=== PATIENT | female | born 1985 | race African-American/Black ===

== ENCOUNTER 2018-03-05 15:48 | Emergency (ER) | payer MEDICAID, OTHER ==
[2018-03-05 16:34] LABS: URINE PH (Dip) POC 5.5 (5.0-8.5)
[2018-03-05 16:34] LABS: URINE BLOOD (Dip) POC 2+ (NEGATIVE); URINE GLUCOSE (Dip) POC Negative (NEGATIVE); URINE KETONES (Dip) POC 1+ (NEGATIVE); URINE LEUKOCYTE EST (Dip) POC 1+ (NEGATIVE); URINE NITRITE (Dip) POC Negative (NEGATIVE); URINE TOTAL PROTEIN POC 1+ (NEGATIVE)
== END 2018-03-05 17:32 | disposition home or self-care (01) ==
LOC: FTE 15:48
DX: O26.892 Other specified pregnancy related conditions, second trimester (principal); R10.2 Pelvic and perineal pain; O23.42 Unspecified infection of urinary tract in pregnancy, second trimester; Z3A.18 18 weeks gestation of pregnancy
CPT/HCPCS: 76805; 81003; 99284-25

== ENCOUNTER 2018-08-03 04:11 | Inpatient (IN) | payer MEDICAID ==
[2018-08-03] MEDS ORDERED: LACTATED RINGER'S 1,000 ML IV (05:16)
[2018-08-03] MEDS ORDERED: IBUPROFEN 600 MG TAB PO (05:30)
[2018-08-03] MEDS ORDERED: LIDOCAINE 1% (MPF) 30 ML INJ INJ (05:30)
[2018-08-03] MEDS ORDERED: CARBOPROST 250 MCG INJ IM ×2 (05:30→21:30)
[2018-08-03] MEDS ORDERED: METHYLERGONOVINE 0.2 MG INJ IM (05:30)
[2018-08-03] MEDS ORDERED: OXYTOCIN 30 UNITS/LR 500 ML IV ×3 (05:30→21:30)
[2018-08-03] MEDS ORDERED: MISOPROSTOL 200 MCG TAB PR ×2 (05:30→21:30)
[2018-08-03] MEDS ORDERED: BUTORPHANOL 2 MG INJ IV (05:30)
[2018-08-03 06:19] LABS: ADD MAN DIFF? NO
[2018-08-03 06:22] LABS: BASOPHILS % 0.3 % (0.0-2.0); EOSINOPHILS % 0.5 % (0.0-7.0); HEMATOCRIT 38.2 % (37.0-47.0); HEMOGLOBIN 12.5 g/dl (12.0-16.0); LYMPHOCYTES # 1.4 10^3/ul (0.8-2.9); LYMPHOCYTES % 18.5 % (15.0-51.0); MEAN CORPUSCULAR HEMOGLOBIN 30.3 pg (29.0-33.0); MEAN CORPUSCULAR HGB CONC 32.7 g/dl (32.0-37.0); MEAN CORPUSCULAR VOLUME 92.7 fl (82.0-101.0); MEAN PLATELET VOLUME 11.5 fl (7.4-10.4); MONOCYTE # 0.8 10^3/ul (0.3-0.9); MONOCYTES % 10.9 % (0.0-11.0); NEUTROPHIL # 5.3 10^3/ul (1.6-7.5); NEUTROPHILS % 68.9 % (39.0-77.0); PLATELET COUNT 195 10^3/UL (140-415); RED BLOOD COUNT 4.12 10^6/ul (4.20-5.40); RED CELL DISTRIBUTION WIDTH 15.9 % (11.5-14.5)
[2018-08-03 06:22] LABS: WHITE BLOOD COUNT 7.7 10^3/ul (4.8-10.8)
[2018-08-03 06:24] LABS: ADD UMIC NO; UR ASCORBIC ACID 20 mg/dL (NEGATIVE); UR BILIRUBIN (Dip) NEGATIVE (NEGATIVE); UR BLOOD (Dip) NEGATIVE (NEGATIVE); UR CLARITY CLEAR (CLEAR); UR COLOR YELLOW (YELLOW); UR GLUCOSE (Dip) NEGATIVE (NEGATIVE); UR KETONES (Dip) TRACE mg/dL (NEGATIVE); UR LEUKOCYTE ESTERASE (Dip) NEGATIVE Leu/ul (NEGATIVE); UR NITRITE (Dip) NEGATIVE (NEGATIVE); UR SPECIFIC GRAVITY (Dip) 1.014 (1.003-1.030); UR TOTAL PROTEIN (Dip) NEGATIVE (NEGATIVE); UR UROBILINOGEN (Dip) NEGATIVE (NEGATIVE)
[2018-08-03 06:39] LABS: AMPHETAMINE/METHAMPHETAMINE Negative (NEGATIVE); BARBITURATES Negative (NEGATIVE); BENZODIAZEPINES Negative (NEGATIVE); CANNABINOIDS Negative (NEGATIVE); COCAINE Negative (NEGATIVE); OPIATES Negative (NEGATIVE)
[2018-08-03 06:41] LABS: INR 0.94; PROTIME 12.7 Sec (11.9-14.9)
[2018-08-03 06:42] LABS: PARTIAL THROMBOPLASTIN TIME 26.9 Sec (23.0-35.0)
[2018-08-03] MEDS: AMPICILLIN 2 GM/NS (PMX) 100 ML IV (06:57)
[2018-08-03 07:15] LABS: HEPATITIS B SURFACE ANTIGEN NEGATIVE (NEGATIVE)
[2018-08-03] MEDS: LACTATED RINGER'S 1,000 ML IV ×3 (10:59→21:16)
[2018-08-03] MEDS ORDERED: NALOXONE (0.4 MG/ML) INJ IV ×2 (11:00→21:30)
[2018-08-03] MEDS ORDERED: FENTAnyl 2MCG/ML-ROPIV 0.2% 100 ML (11:01)
[2018-08-03] MEDS ORDERED: FENTAnyl 50 MCG/ML VIAL ×2 (11:02→20:04)
[2018-08-03] MEDS: AMPICILLIN 1 GM/NS (PMX) 50 ML IV ×4 (11:51→21:30)
[2018-08-03 14:54] LABS: RAPID PLASMA REAGIN NONREACTIVE (NR)
[2018-08-03] MEDS: FENTAnyl 2MCG/ML-ROPIV 0.2% 100 ML BAG EPI (18:42)
[2018-08-03] MEDS ORDERED: CEFAZOLIN 2 GM/50 ML (PMX) 50 ML IVPB (19:11)
[2018-08-03] MEDS ORDERED: MIDAZOLAM 1 MG/ML 2 ML INJ (20:04)
[2018-08-03] MEDS ORDERED: LIDOCAINE 1.5%/EPI MPF (SDV) 30 ML VIAL (20:04)
[2018-08-03] MEDS ORDERED: ONDANSETRON 4 MG INJ (20:30)
[2018-08-03] MEDS ORDERED: DEXAMETHASONE 4 MG/ML 1 ML INJ (20:30)
[2018-08-03] MEDS ORDERED: PHENYLephrine (100 MCG/ML) 10ML SYG ×2 (20:45→20:50)
[2018-08-03] MEDS ORDERED: EPHEDrine 25 MG/5 ML SYG (20:50)
[2018-08-03] MEDS ORDERED: ZOLPIDEM 5 MG TAB PO (21:30)
[2018-08-03] MEDS ORDERED: NACL 0.9% 3 ML SYG IV (21:30)
[2018-08-03] MEDS ORDERED: DIPHENHYDRAMINE 50 MG INJ IV (21:30)
[2018-08-03] MEDS ORDERED: HYDROmorphONE 0.5 MG/0.5 ML SYG IV (21:30)
[2018-08-03] MEDS ORDERED: ONDANSETRON 4 MG INJ IV (21:30)
[2018-08-03 23:09] LABS: HIV 1&2 ANTIBODY NEGATIVE (NEGATIVE)
[2018-08-03] MEDS: OXYTOCIN 30 UNITS/LR 500 ML IV ×3 (23:18→23:41)
[2018-08-03] MEDS: KETOROLAC 30 MG INJ IV (23:23)
[2018-08-03] MEDS: CEFAZOLIN 2 GM/50 ML (PMX) 50 ML IVPB (23:39)
[2018-08-03] MEDS: METHYLERGONOVINE 0.2 MG INJ IM (23:40)
[2018-08-04] MEDS: HYDROmorphONE 0.5 MG/0.5 ML SYG IV (02:23)
[2018-08-04] MEDS: OXYTOCIN 30 UNITS/LR 500 ML IV (03:48)
[2018-08-04 06:20] LABS: ADD MAN DIFF? NO
[2018-08-04 06:28] LABS: ABNORMAL IP MESSAGE 1; BASOPHILS % 0.1 % (0.0-2.0); HEMATOCRIT 32.3 % (37.0-47.0); HEMOGLOBIN 10.8 g/dl (12.0-16.0); LYMPHOCYTES # 1.1 10^3/ul (0.8-2.9); LYMPHOCYTES % 6.7 % (15.0-51.0); MEAN CORPUSCULAR HEMOGLOBIN 30.9 pg (29.0-33.0); MEAN CORPUSCULAR HGB CONC 33.4 g/dl (32.0-37.0); MEAN CORPUSCULAR VOLUME 92.3 fl (82.0-101.0); MEAN PLATELET VOLUME 11.3 fl (7.4-10.4); MONOCYTE # 1.5 10^3/ul (0.3-0.9); MONOCYTES % 9.5 % (0.0-11.0); NEUTROPHIL # 13.3 10^3/ul (1.6-7.5); PLATELET COUNT 169 10^3/UL (140-415); RED CELL DISTRIBUTION WIDTH 15.6 % (11.5-14.5)
[2018-08-04 06:48] LABS: POSITIVE DIFF @See below
[2018-08-04] MEDS: KETOROLAC 30 MG INJ IV ×3 (07:57→20:32)
[2018-08-04] MEDS: SENNA/DOCUSATE NA (8.6MG/50MG) TAB PO ×2 (10:47→20:31)
[2018-08-04] MEDS: LACTATED RINGER'S 1,000 ML IV ×2 (13:11→17:28)
[2018-08-04] MEDS: IBUPROFEN 600 MG TAB PO (21:30)
[2018-08-05] MEDS: LANOLIN HPA 1 PKT TOP (00:49)
[2018-08-05] MEDS: OXYCODONE/ACETAMINOPHEN (5/325) TAB PO ×2 (00:49→19:42)
[2018-08-05] MEDS: LACTATED RINGER'S 1,000 ML IV (02:00)
[2018-08-05] MEDS: IBUPROFEN 600 MG TAB PO ×4 (05:39→23:30)
[2018-08-05] MEDS: SENNA/DOCUSATE NA (8.6MG/50MG) TAB PO ×2 (09:28→19:42)
[2018-08-06] MEDS: IBUPROFEN 600 MG TAB PO ×2 (05:45→12:23)
[2018-08-06] MEDS: SENNA/DOCUSATE NA (8.6MG/50MG) TAB PO (09:45)
[2018-08-06] MEDS: OXYCODONE/ACETAMINOPHEN (5/325) TAB PO (10:54)
[2018-08-07 09:06] LABS: RUBELLA ANTIBODY - IGM <20.00 AU/mL
== END 2018-08-06 17:41 | disposition home or self-care (01) | DRG 788 ==
LOC: OBT 04:11 → PP1 08-04 00:14 → L-D 04:12 → OBT 04:40 → L-D 04:40
PROVIDERS: Obstetrics & Gynecology
PROC: 10D00Z1 Extraction of Products of Conception, Low, Open Approach (ICD-10-PCS; principal; 2018-08-03 20:30)
PROC: 3E033VJ Introduction of Other Hormone into Peripheral Vein, Percutaneous Approach (ICD-10-PCS; 2018-08-03 20:30)
DX: O66.0 Obstructed labor due to shoulder dystocia (principal); Z3A.39 39 weeks gestation of pregnancy; Z37.0 Single live birth
CPT/HCPCS: 62319; 76815; 76818; 80307; 81003; 85025; 85610; 85730; 86592; 86703; 86762; 86850; 86900; 86901; 87340; 99464

== ENCOUNTER 2018-09-18 18:43 | Inpatient (IN) | payer MEDICAID ==
[2018-09-18] MEDS: SOD CHLORIDE 0.9% 1,000 ML IV (22:28)
[2018-09-18] MEDS: ONDANSETRON 4 MG INJ IV (22:31)
[2018-09-18] MEDS: FAMOTIDINE 20 MG INJ IV (22:31)
[2018-09-18 22:39] LABS: ADD MAN DIFF? NO
[2018-09-18 22:42] LABS: WHITE BLOOD COUNT 10.1 10^3/ul (4.8-10.8)
[2018-09-18 22:42] LABS: BASOPHILS % 0.2 % (0.0-2.0); EOSINOPHILS % 0.1 % (0.0-7.0); HEMATOCRIT 42.1 % (37.0-47.0); HEMOGLOBIN 13.9 g/dl (12.0-16.0); LYMPHOCYTES # 0.7 10^3/ul (0.8-2.9); LYMPHOCYTES % 7.1 % (15.0-51.0); MEAN CORPUSCULAR HEMOGLOBIN 30.3 pg (29.0-33.0); MEAN CORPUSCULAR VOLUME 91.7 fl (82.0-101.0); MEAN PLATELET VOLUME 11.3 fl (7.4-10.4); MONOCYTE # 0.7 10^3/ul (0.3-0.9); MONOCYTES % 6.6 % (0.0-11.0); NEUTROPHIL # 8.7 10^3/ul (1.6-7.5); NEUTROPHILS % 85.7 % (39.0-77.0); PLATELET COUNT 246 10^3/UL (140-415); RED BLOOD COUNT 4.59 10^6/ul (4.20-5.40)
[2018-09-18 22:46] LABS: ADD UMIC YES; UR ASCORBIC ACID NEGATIVE (NEGATIVE); UR BILIRUBIN (Dip) 2+ mg/dL (NEGATIVE); UR BLOOD (Dip) 2+ mg/dL (NEGATIVE); UR CLARITY CLEAR (CLEAR); UR COLOR AMBER (YELLOW); UR GLUCOSE (Dip) NEGATIVE (NEGATIVE); UR KETONES (Dip) 1+ mg/dL (NEGATIVE); UR LEUKOCYTE ESTERASE (Dip) NEGATIVE Leu/ul (NEGATIVE); UR NITRITE (Dip) NEGATIVE (NEGATIVE); UR RBC 26 /HPF (0-5); UR SPECIFIC GRAVITY (Dip) 1.016 (1.003-1.030); UR SQUAMOUS EPITHELIAL CELL FEW /HPF (FEW); UR TOTAL PROTEIN (Dip) NEGATIVE (NEGATIVE); UR UROBILINOGEN (Dip) 2+ mg/dL (NEGATIVE); UR WBC 3 /HPF (0-5)
[2018-09-18 23:00] LABS: ALANINE AMINOTRANSFERASE 545 IU/L (13-69); ALBUMIN 4.6 g/dl (3.3-4.9); ALBUMIN/GLOBULIN RATIO 1.24; ALKALINE PHOSPHATASE 250 IU/L (42-121); ANION GAP 7 (5-13); ASPARTATE AMINO TRANSFERASE 541 IU/L (15-46); BILIRUBIN,INDIRECT 0.9 mg/dl (0-1.1); BILIRUBIN,TOTAL 3.3 mg/dl (0.2-1.3); BLOOD UREA NITROGEN 12 mg/dl (7-20); CALCIUM 9.6 mg/dl (8.4-10.2); CARBON DIOXIDE 28 mmol/L (21-31); CHLORIDE 107 mmol/L (97-110); CREATININE 0.63 mg/dl (0.44-1.00); Estimated GFR > 60 mL/min (>60); GLUCOSE 148 mg/dl (70-220); SODIUM 142 mmol/L (135-144); TOTAL PROTEIN 8.3 g/dl (6.1-8.1)
[2018-09-19 00:07] LABS: LIPASE 43720 U/L (23-300)
[2018-09-19] MEDS: SOD CHLORIDE 0.9% 1,000 ML IV ×5 (00:25→21:43)
[2018-09-19] MEDS: morphine 4 MG/ML VIAL IV (00:38)
[2018-09-19] MEDS: ONDANSETRON 4 MG INJ IV (00:38)
[2018-09-19] MEDS ORDERED: DOCUSATE SODIUM 100 MG CAP PO (03:00)
[2018-09-19] MEDS ORDERED: ONDANSETRON 4 MG INJ IV ×2 (03:00→19:00)
[2018-09-19] MEDS ORDERED: BISACODYL (EC) 5 MG TAB PO (03:00)
[2018-09-19] MEDS ORDERED: NACL 0.9% 3 ML SYG IV (03:00)
[2018-09-19] MEDS ORDERED: METOCLOPRAMIDE 10 MG INJ IV ×2 (03:00→19:00)
[2018-09-19] MEDS: HYDROmorphONE 0.5 MG/0.5 ML SYG IV (04:34)
[2018-09-19 05:52] LABS: ADD MAN DIFF? NO
[2018-09-19 05:58] LABS: BASOPHILS % 0.1 % (0.0-2.0); EOSINOPHILS % 0.4 % (0.0-7.0); HEMATOCRIT 36.2 % (37.0-47.0); HEMOGLOBIN 11.7 g/dl (12.0-16.0); LYMPHOCYTES # 1.5 10^3/ul (0.8-2.9); MEAN CORPUSCULAR HEMOGLOBIN 30.2 pg (29.0-33.0); MEAN CORPUSCULAR HGB CONC 32.3 g/dl (32.0-37.0); MEAN CORPUSCULAR VOLUME 93.3 fl (82.0-101.0); MEAN PLATELET VOLUME 11.7 fl (7.4-10.4); MONOCYTE # 0.7 10^3/ul (0.3-0.9); MONOCYTES % 8.4 % (0.0-11.0); NEUTROPHIL # 5.8 10^3/ul (1.6-7.5); NEUTROPHILS % 71.9 % (39.0-77.0); PLATELET COUNT 211 10^3/UL (140-415); RED BLOOD COUNT 3.88 10^6/ul (4.20-5.40); RED CELL DISTRIBUTION WIDTH 15.1 % (11.5-14.5)
[2018-09-19 06:21] LABS: HEMOGLOBIN A1C 6.1 % (0-5.9)
[2018-09-19 06:30] LABS: ALANINE AMINOTRANSFERASE 393 IU/L (13-69); ALBUMIN 3.6 g/dl (3.3-4.9); ALBUMIN/GLOBULIN RATIO 1.16; ALKALINE PHOSPHATASE 201 IU/L (42-121); ANION GAP 5 (5-13); ASPARTATE AMINO TRANSFERASE 329 IU/L (15-46); BILIRUBIN,INDIRECT 0.8 mg/dl (0-1.1); BILIRUBIN,TOTAL 2.7 mg/dl (0.2-1.3); BLOOD UREA NITROGEN 11 mg/dl (7-20); CALCIUM 8.3 mg/dl (8.4-10.2); CARBON DIOXIDE 27 mmol/L (21-31); CHLORIDE 110 mmol/L (97-110); CHOL/HDL RATIO 3.9 RATIO; CHOLESTEROL 210 mg/dl (100-200); CREATININE 0.59 mg/dl (0.44-1.00); Estimated GFR > 60 mL/min (>60); GLUCOSE 97 mg/dl (70-220); HDL CHOLESTEROL 53 mg/dl (34-82); LDL CHOLESTEROL,CALCULATED 146 mg/dl; MAGNESIUM 1.9 mg/dl (1.7-2.5); POTASSIUM 3.7 mmol/L (3.5-5.1); SODIUM 142 mmol/L (135-144); TOTAL PROTEIN 6.7 g/dl (6.1-8.1); TRIGLYCERIDES 54 mg/dl (0-149)
[2018-09-19 06:57] LABS: THYROID STIMULATING HORMONE 0.994 MIU/L (0.465-4.680)
[2018-09-19] MEDS ORDERED: INDOMETHACIN 50 MG SUPP PR ×2 (17:30→18:00)
[2018-09-19] MEDS ORDERED: IOHEXOL 300MG/ML 30 ML BTL (17:35)
[2018-09-19] MEDS ORDERED: PROPOFOL 20 ML (17:43)
[2018-09-19] MEDS ORDERED: INDOMETHACIN 50 MG PO (18:00)
[2018-09-19] MEDS ORDERED: ROCURONIUM 50 MG INJ (18:07)
[2018-09-19] MEDS ORDERED: DEXAMETHASONE 4 MG/ML 5 ML INJ (18:07)
[2018-09-19] MEDS ORDERED: ONDANSETRON 4 MG INJ (18:08)
[2018-09-19] MEDS ORDERED: SUGAMMADEX SODIUM 200 MG/2 ML VIAL IV (18:21)
[2018-09-19] MEDS ORDERED: hydrALAzine 20 MG INJ IV (19:00)
[2018-09-19] MEDS ORDERED: DIPHENHYDRAMINE 50 MG INJ IV (19:00)
[2018-09-19] MEDS ORDERED: ALBUTEROL 0.083% (NEB) 2.5 MG/3 ML AMP HHN (19:00)
[2018-09-19] MEDS ORDERED: MIDAZOLAM 1 MG/ML 2 ML INJ IV (19:00)
[2018-09-19] MEDS ORDERED: EPHEDrine SULFATE 50 MG/5 ML SYG IV (19:00)
[2018-09-19] MEDS ORDERED: KETOROLAC 30 MG INJ IV (19:00)
[2018-09-19] MEDS ORDERED: FENTAnyl 50 MCG/ML VIAL IV ×3 (19:00)
[2018-09-19] MEDS ORDERED: LABETALOL HCL 20MG INJ IV (19:00)
[2018-09-19] MEDS ORDERED: HYDROmorphONE 1 MG/5 ML IV SYRINGE IV ×3 (19:00)
[2018-09-19] MEDS ORDERED: MEPERIDINE 25 MG INJ IV (19:00)
[2018-09-20] MEDS: SOD CHLORIDE 0.9% 1,000 ML IV ×6 (02:25→17:42)
[2018-09-20 05:33] LABS: ADD MAN DIFF? NO
[2018-09-20 05:37] LABS: WHITE BLOOD COUNT 10.1 10^3/ul (4.8-10.8)
[2018-09-20 05:37] LABS: BASOPHILS % 0.1 % (0.0-2.0); HEMATOCRIT 36.4 % (37.0-47.0); HEMOGLOBIN 11.9 g/dl (12.0-16.0); LYMPHOCYTES # 0.8 10^3/ul (0.8-2.9); LYMPHOCYTES % 8.2 % (15.0-51.0); MEAN CORPUSCULAR HEMOGLOBIN 30.1 pg (29.0-33.0); MEAN CORPUSCULAR HGB CONC 32.7 g/dl (32.0-37.0); MEAN CORPUSCULAR VOLUME 92.2 fl (82.0-101.0); MEAN PLATELET VOLUME 11.5 fl (7.4-10.4); MONOCYTE # 0.3 10^3/ul (0.3-0.9); MONOCYTES % 3.4 % (0.0-11.0); NEUTROPHIL # 8.9 10^3/ul (1.6-7.5); NEUTROPHILS % 87.9 % (39.0-77.0); PLATELET COUNT 214 10^3/UL (140-415); RED BLOOD COUNT 3.95 10^6/ul (4.20-5.40); RED CELL DISTRIBUTION WIDTH 14.6 % (11.5-14.5)
[2018-09-20 05:52] LABS: PHOSPHORUS 3.8 mg/dl (2.5-4.9)
[2018-09-20 05:52] LABS: MAGNESIUM 1.9 mg/dl (1.7-2.5)
[2018-09-20 05:56] LABS: ALANINE AMINOTRANSFERASE 287 IU/L (13-69); ALBUMIN 3.6 g/dl (3.3-4.9); ALBUMIN/GLOBULIN RATIO 1.24; ALKALINE PHOSPHATASE 210 IU/L (42-121); ANION GAP 9 (5-13); ASPARTATE AMINO TRANSFERASE 133 IU/L (15-46); BILIRUBIN,INDIRECT 0.7 mg/dl (0-1.1); BILIRUBIN,TOTAL 0.7 mg/dl (0.2-1.3); BLOOD UREA NITROGEN 14 mg/dl (7-20); CALCIUM 8.7 mg/dl (8.4-10.2); CARBON DIOXIDE 22 mmol/L (21-31); CHLORIDE 110 mmol/L (97-110); CREATININE 0.46 mg/dl (0.44-1.00); Estimated GFR > 60 mL/min (>60); GLUCOSE 105 mg/dl (70-220); POTASSIUM 3.9 mmol/L (3.5-5.1); SODIUM 141 mmol/L (135-144); TOTAL PROTEIN 6.5 g/dl (6.1-8.1)
[2018-09-20 05:58] LABS: LIPASE 904 U/L (23-300)
[2018-09-20 05:58] LABS: AMYLASE 379 U/L (11-123)
[2018-09-20] MEDS: ACETAMINOPHEN 325 MG TAB PO (17:45)
[2018-09-20] MEDS: HYDROmorphONE 0.5 MG/0.5 ML SYG IV (20:38)
[2018-09-21] MEDS: SOD CHLORIDE 0.9% 1,000 ML IV ×5 (00:05→12:37)
[2018-09-21] MEDS: HYDROmorphONE 0.5 MG/0.5 ML SYG IV ×3 (03:15→14:25)
[2018-09-21 05:21] LABS: ADD MAN DIFF? NO
[2018-09-21 05:27] LABS: WHITE BLOOD COUNT 7.9 10^3/ul (4.8-10.8)
[2018-09-21 05:27] LABS: BASOPHILS % 0.4 % (0.0-2.0); EOSINOPHILS # 0.1 10^3/ul (0.0-0.5); EOSINOPHILS % 1.6 % (0.0-7.0); HEMATOCRIT 30.8 % (37.0-47.0); HEMOGLOBIN 10.1 g/dl (12.0-16.0); LYMPHOCYTES # 2.1 10^3/ul (0.8-2.9); LYMPHOCYTES % 26.3 % (15.0-51.0); MEAN CORPUSCULAR HEMOGLOBIN 30.4 pg (29.0-33.0); MEAN CORPUSCULAR HGB CONC 32.8 g/dl (32.0-37.0); MEAN CORPUSCULAR VOLUME 92.8 fl (82.0-101.0); MEAN PLATELET VOLUME 11.4 fl (7.4-10.4); MONOCYTE # 0.7 10^3/ul (0.3-0.9); MONOCYTES % 8.3 % (0.0-11.0); NEUTROPHILS % 62.8 % (39.0-77.0); PLATELET COUNT 199 10^3/UL (140-415); RED BLOOD COUNT 3.32 10^6/ul (4.20-5.40); RED CELL DISTRIBUTION WIDTH 14.7 % (11.5-14.5)
[2018-09-21 05:55] LABS: LIPASE 297 U/L (23-300)
[2018-09-21 05:55] LABS: AMYLASE 114 U/L (11-123)
[2018-09-21 06:14] LABS: ALANINE AMINOTRANSFERASE 177 IU/L (13-69); ALBUMIN 3.1 g/dl (3.3-4.9); ALBUMIN/GLOBULIN RATIO 1.19; ALKALINE PHOSPHATASE 151 IU/L (42-121); ANION GAP 5 (5-13); ASPARTATE AMINO TRANSFERASE 50 IU/L (15-46); BILIRUBIN,INDIRECT 0.3 mg/dl (0-1.1); BILIRUBIN,TOTAL 0.3 mg/dl (0.2-1.3); BLOOD UREA NITROGEN 13 mg/dl (7-20); CALCIUM 8.1 mg/dl (8.4-10.2); CARBON DIOXIDE 23 mmol/L (21-31); CHLORIDE 112 mmol/L (97-110); CREATININE 0.55 mg/dl (0.44-1.00); Estimated GFR > 60 mL/min (>60); GLUCOSE 95 mg/dl (70-220); POTASSIUM 3.4 mmol/L (3.5-5.1); SODIUM 140 mmol/L (135-144); TOTAL PROTEIN 5.7 g/dl (6.1-8.1)
[2018-09-21] MEDS: POTASSIUM CHLORIDE (SR) 10 MEQ TAB PO (15:10)
== END 2018-09-21 20:10 | disposition home or self-care (01) | DRG 440 ==
LOC: FTE 18:43 → 2NE 09-19 01:52
PROC: 0FC98ZZ Extirpation of Matter from Common Bile Duct, Via Natural or Artificial Opening Endoscopic (ICD-10-PCS; principal; 2018-09-19 16:30)
PROC: 0FCC8ZZ Extirpation of Matter from Ampulla of Vater, Via Natural or Artificial Opening Endoscopic (ICD-10-PCS; 2018-09-19 16:30)
DX: K85.10 Biliary acute pancreatitis without necrosis or infection (principal); K80.70 Calculus of gallbladder and bile duct without cholecystitis without obstruction; E66.9 Obesity, unspecified; D64.9 Anemia, unspecified; E78.5 Hyperlipidemia, unspecified; R73.03 Prediabetes; Z68.32 Body mass index [BMI] 32.0-32.9, adult
CPT/HCPCS: 36415; 74330; 76705; 80053; 80061; 81001; 82150; 83036; 83690; 83735; 84100; 84443; 84703; 85025; 96374; 96375; 96376; 99285-25